=== PATIENT | male | born 2000 | race African-American/Black ===

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

== ENCOUNTER 2020-10-12 13:21 | Emergency (ER) | payer OTHER ==
[~2020-10-12] VITALS: Ht 175.3 cm; Wt 61.2 kg
[~2020-10-12 13:21] MED LIST: COLACE100 MG PO; PERCOCET PO
[2020-10-12] MEDS ORDERED: GABAPENTIN600 M1 PO (13:42)
[2020-10-12] MEDS ORDERED: DOXYCYCLINE 10100 M2 PO (13:43)
[2020-10-12 14:17] LABS: ABSOLUTE NEUTROPHILS 7.9 thou/uL (1.4-8.2); BASOPHILS 0.2 % (0.0-2.0); HEMATOCRIT 41.7 % (42.0-52.0); HEMOGLOBIN 13.9 gm/dL (14.0-18.0); LYMPHOCYTES 4.9 % (24.0-44.0); MCH 28.6 pg (26.0-34.0); MCHC 33.4 g/dL (28.0-37.0); MCV 85.4 fL (80.0-100.0); MONOCYTES 5.6 % (1.0-8.0); PLATELET COUNT 165 thou/uL (150-400); POLYS 89.3 % (36.0-66.0); RBC 4.88 mil/uL (4.50-6.00); RDW 13.5 % (10.5-14.5); WBC 8.8 thou/uL (4.0-11.0)
[2020-10-12 14:31] LABS: CALCIUM 9.1 mg/dL (8.5-10.1); CREATININE 1.2 mg/dL (0.7-1.3); POTASSIUM 4.2 mmol/L (3.5-5.1)
[2020-10-12] MEDS ORDERED: FLEXERIL PO (17:29)
[2020-10-12] MEDS ORDERED: IBUPROFEN 800800 M1 PO (17:29)
[2020-10-12 17:52] VITALS: BP 108/70
== END 2020-10-12 17:52 | disposition home or self-care (01) ==
LOC: ER 13:21
PROVIDERS: Emergency Medicine
DX: S39.012A Strain of muscle, fascia and tendon of lower back, initial encounter (principal); Z79.899 Other long term (current) drug therapy; V49.88XA Car occupant (driver) (passenger) injured in other specified transport accidents, initial encounter; Y93.89 Activity, other specified; Y92.413 State road as the place of occurrence of the external cause; Y99.9 Unspecified external cause status